=== PATIENT | female | born 1940 | race American Indian/Alaskan Native ===

== ENCOUNTER 2019-11-20 05:01 | Inpatient (IN) | payer MEDICARE, OTHER ==
[~2019-11-20] VITALS: Ht 149.9 cm; Wt 69.9 kg
[~2019-11-20 05:01] MED LIST: ACETAMINOPHEN-1 EAC1 PO; ALL DAY ALLERGY10 M3 PO; ALLEGRA ALLERG180 MG PO; ASPIR 8181 MG PO; FLAXSEED1000 MG PO; FUROSEMIDE40 MG PO; K-TAB ER20 MEQ PO; NITROGLYCERIN0.4 MG SL; NORCO 5-325 TA1 EACH PO; PLAQUENIL200 MG PO; PLAVIX75 MG PO
[2019-11-20] MEDS ORDERED: DOXYCYCLINE HY100 MG PO (05:17)
[2019-11-20] MEDS ORDERED: VITAMIN D250 MCG PO (05:18)
[2019-11-20] MEDS ORDERED: BETAMETHASONE D15 G1 TOP (05:19)
[2019-11-20] MEDS ORDERED: DOCUSATE SODIU100 MG PO (05:21)
[2019-11-20] MEDS ORDERED: PEPTO-BISMOL262 MG PO (05:21)
[2019-11-20] MEDS ORDERED: PAIN RELIEF500 M1 PO (05:22)
[2019-11-20] MEDS ORDERED: VITAMIN C1000 MG PO (05:22)
[2019-11-20] MEDS ORDERED: KAOPECTATE262 MG PO (05:23)
[2019-11-20] MEDS ORDERED: IMODIUM A-D2 M2 PO (05:24)
[2019-11-20] MEDS ORDERED: CYANOCOBAL1000 MCG/M IM (10:49)
--- NOTE | 2019-11-20 12:13 | CONS ---
[facility] [address], [place] [address] Signed DATE OF CONSULTATION: 11/20/2019 CHIEF COMPLAINT: Weakness. HISTORY OF PRESENT ILLNESS: Erika is an 79-year-old female, who happens to live with one of her five daughters. In general, she is fairly healthy except she did need an aortic valve replacement. They tried the radial approach, but they were unable to access the artery. She said it was miserable. They then used the groin approach and it went fine. They later go home two days later by private vehicle from [place] on a 3-hour drive home, she said she passed out in the car and had to be readmitted to our local hospital. Apparently, she needed some physical therapy at that time as well. Her only other surgery would have been an open hysterectomy with an incidental appendectomy at the same time. The last couple of days she had been feeling weak and anorexic. Finally, she was unable to get out of bed to get to the bathroom at 4 a.m. The daughter had called the EMS, had her brought to our local emergency room. She was found to have a fever and tachycardia, so she was started on sepsis protocol. She received a total of 3 L IV fluid and initially, a dose of Rocephin. Her systolic blood pressures have been soft in 80s to about 110. Heart rate has been running around 100 or so. In general, though she is improved both her vital signs and her overall clinical presentation. Initial chest x-ray was unremarkable for the most part. White count was up a little bit with elevated liver function test. Urinalysis was not overly concerning, although there seems to be some bacteria in it, but of course that culture is pending along with the blood cultures. With elevated liver function test, then an ultrasound was performed and we see that there is pericholecystic fluid and the gallbladder wall was a little thick at 5 mm. There appears to be sludge in the gallbladder, but the common bile duct is unremarkable. I had been called while I was in the operating room and I have come over to see her currently. PAST MEDICAL HISTORY: Aortic valve disease, deconditioning, GI bleed, alcohol abuse, positive PPD, seasonal allergies, lower extremity edema, congestive heart failure, rest pain, paroxysmal nocturnal dyspnea, mild COPD, bilateral knee pain, vertigo, herpes zoster, eczema, and possibly issues with carotid artery, although she is not sure. PAST SURGICAL HISTORY: Includes open hysterectomy with an incidental appendectomy many years ago and then aortic valve replacement in 2018 through an inguinal approach. SOCIAL HISTORY: She used to smoke and drink, but none recently. She lives with her daughter Ashely at [phone]. Also, her daughter, Ratna is here today. She follows with Diana Electronically Signed By: ARCHANA VALLE MD 11/20/19 1213 PATIENT NAME: ERIKA MCKENZIE CONSULTATION DATE OF : 36 REPORT #: [id number] PHYSICIAN: ARCHANA VALLE MD PCP: [facility] REPORT IS CONFIDENTIAL AND NOT TO BE RELEASED WITHOUT AUTHORIZATION [facility] [address], [place] [address] Signed Evans with [facility] and Dr. Kathy Nova is her development representative. She is a retired and prefer a [facility]. FAMILY HISTORY: Not obtained. REVIEW OF SYSTEMS: I talked with Erika and her daughter. Apparently, she has been doing generally at her baseline until last couple of days. ALLERGIES: None. MEDICATIONS: She stopped her Lasix. Also, docusate, Pepto-Bismol, vitamin C, Tylenol, Kaopectate, Imodium, hydroxychloroquine, Daxa, potassium, aspirin, doxycycline, vitamin D, and betamethasone cream. PHYSICAL EXAMINATION: VITAL SIGNS: Systolic blood pressure is running 80s to 111 over 37 to 72, heart rate 97 to 124, respiratory rate 20 to 27, her O2 sats around 95 to 98% on 2 L. Her temperature is 100.4. She is 4 feet 11 inches at 71 kg exam. GENERAL: Erika is an 79-year-old female lying supine in her ER bed. She is alert, awake, and interactive. She generally has good insight and answers appropriately. LUNGS: Clear to auscultation bilaterally. HEART: Little fast in the 90s. It appears to be sinus. I can hear a 3/6 systolic ejection murmur. ABDOMEN: Soft, flat, nontender. No palpable masses. Eventually, I went out to get her daughter about that as well. LABORATORY DATA: Her white blood cell count is 11.2, hemoglobin 15, neutrophils 96, platelets 144, BUN 18, creatinine 0.79, potassium 3.3. The total bilirubin is 4.0, AST 1198, ALT 699, alkaline phosphatase 327, albumin 3.2. D-dimer is up at 3640. Ferritin up at 1614. Lactic acid was initially 3.2, it is down to 1.7. Troponin is less than 0.010. Urinalysis showed some bacteria and so the urine culture is pending and her blood cultures are pending EKG of course showed her sinus tachycardia. RADIOGRAPHIC STUDIES: The chest x-rays reviewed and it shows the aortic valve prosthesis and may be some atelectasis in the lower lungs, but overall not particularly concerning. Ultrasound showed the pericholecystic fluid with the 5 mm thick gallbladder wall with sludge in the gallbladder, but a negative common bile duct. Electronically Signed By: ARCHANA VALLE MD 11/20/19 1213 PATIENT NAME: ERIKA MCKENZIE CONSULTATION DATE OF : 36 REPORT #: [id number] PHYSICIAN: ARCHANA VALLE MD [facility] REPORT IS CONFIDENTIAL AND NOT TO BE RELEASED WITHOUT AUTHORIZATION [facility] [address], [place] [address] Signed ASSESSMENT AND PLAN: Erika is an 79-year-old female, who presents with acute cholecystitis, cholelithiasis in the form of sludge. She is obviously a little septic. Overall, she has responded to her initial resuscitation. I spent a significant amount of time with Erika and her daughter, Ratna here in the emergency room. Erika seems very convicted that she wants no surgery. She told me the aortic valve replacement was quite miserable. I explained to her we generally like to remove infected gallbladder unless someone is so medically ill and/or septic that we would have to percutaneously drain the gallbladder. That is usually done by interventional radiologist. Our concern is that under general anesthetic that group of patients obviously would suffer a complete cardiovascular collapse. However at our small 25-bed critical access hospital, we have no interventional radiologist. These patients often go 3 hours away to [place]. Once they are stable, generally they get their gallbladders out while there in [place]. If there was no sludge or stones, the chance of recurrent cholecystitis is much less after percutaneous drainage. Consequently, when they have sludge and/or stones, we often removed that gallbladder once they are stable whether it is days or several weeks or even several months. The other option is admission with IV antibiotics. However, that is generally not particularly successful. They often improve initially, but once antibiotics come off, it generally recurs. She did ask if she could go home on antibiotics and that is generally not advised. Again, she maintain her desire repeatedly not to have surgery. In fact, I am not sure if she is interested in any interventional procedures. She has five daughters and she wants to talk to her daughters first and she will let us know. In the meantime, I have discussed this with Dr. Gaming, physician. I will also contact our hospitalist and update him as well. I am certainly available for her, I think she would probably be successful with her surgery. In the meantime, we were trying to obtain the most recent records from her development representative. She and her daughter have expressed understanding and agreed to above plan. Archana Valle MD ALB/MODL /[id number] cc: ANA MARÍA Najera MD Electronically Signed By: ARCHANA VALLE MD 11/20/19 1213 PATIENT NAME: ERIKA MCKENZIE CONSULTATION DATE OF : 36 REPORT #: [id number] PHYSICIAN: ARCHANA VALLE MD PCP: [facility] REPORT IS CONFIDENTIAL AND NOT TO BE RELEASED WITHOUT AUTHORIZATION [address] [address] Signed Archana Valle MD Copies: KATHY NOVA MD, ANDREW L MD ~ Electronically Signed By: ARCHANA VALLE MD 11/20/19 1213 PATIENT NAME: ERIKA MCKENZIE [facility] CONSULTATION DATE OF : 36 REPORT #: [id number] PHYSICIAN: ARCHANA VALLE MD PCP: [facility] REPORT IS CONFIDENTIAL AND NOT TO BE RELEASED WITHOUT AUTHORIZATION
--- NOTE | 2019-11-20 12:30 | NUR ---
PATIENT TO CCU FROM ER, BEDSIDE REPORT FROM ROSEY MARTINES. PATIENT AWAKE AND ALERT, HOB UP 45 DEGREE ANGLE. BED WEIGHT COLLECTED AND RECORDED. FULL ADMISSION DONE. DR. VALLE INTO ROOM, CONSENT SIGNED. DR. EDWARDS TO ROOM. PLAN FOR PATIENT TO GO TO SURGERY WITHIN THE NEXT HOUR, LR ON STRAIGHT TUBING HUNG. PRE-OP MEDICATIONS ADMINISTERED SEE SEP. MARCELLA MURPHY VERBALIZED TO HOLD K RIDER UNTIL AFTER SURGERY, DR. VALLE AWARE. VSS. REMOVED DENTURES AND GLASSES, CLEANSED DENTURES AND PLACED INTO CUP. LUNG SOUND CLEAR THROUGHOUT BILAT. PATIENT ORIENTED TO ROOM, UPDATE PROVIDED TO FAMILY. CALL LIGHT WITHIN REACH.
--- NOTE | 2019-11-20 13:00 | NUR ---
PATIENT LEFT FLOOR IN BED WITH JUNE RN TO SURGERY. COVID TEST NEGATIVE PLAN TO MOVE PATIENT TO ROOM 127.
--- NOTE | 2019-11-20 13:35 | NUR ---
PT TAKEN TO OR FOR SURGERY. WILL CHECK BACK
--- NOTE | 2019-11-20 15:25 | NUR ---
Attempted to speak with Erika. She is sleeping following surgery. Called and spoke with daughters Ashely and Ratna. Per daughters, pt is active and lives with their sister Irish. Pt drives herself, is retired as a commercial accountant. Uses a cane when needed, has a shower chair which she does not use. Daughters feel pt will need a walker on dc. Will notify the Dr. and follow up with patient tomorrow.
--- NOTE | 2019-11-20 15:30 | NUR ---
PATIENT APPEARS TO BE GRUNTING LAYING ON RIDE SIDE, STATES " I CANT BREATHE" LUNG SOUND AUSCULTATE FINE CRACKLES BREONNA, 02 SATURATION 98% RA, RR 19-23. PATIENT REPORTS NO PAIN. NOTIFIED DR. VALLE WHO VERBALIZED POST ANESTHESIA WITH MEDICATIONS ADMINISTERED DURING SURGERY. THEN VERBALIZED TO CALL AND TALK WITH MARCELLA MURPHY, TELEPHONE CALL TO MARCELLA MURPHY WHO VERABLIZED HE DIDN'T HAVE ANY MEDICATIONS TO ORDER THAT WOULD HELP WITH THE PATIENT'S FEELING OF BREATHLESSNESS. THEN VERBALIZED FOR THIS NURSE TO CALL HOSPITALIST DR. EDWARDS FOR FURTHER INSTRUCTION. PHONE CALL TO DR. EDWARDS AND NOTIFIED OF PATIENTS COMPLAINTS OF BREATHLESSNESS, DISCUSSED LUNG SOUNDS, AND VITAL SIGNS. ALSO REVIEWED I&O. DR. EDWARDS VERBALIZED WOULD COME TO PATIENT ROOM TO ASSESS.
--- NOTE | 2019-11-20 15:45 | NUR ---
DR. EDWARDS TO ROOM, ASSESSED PATIENT. NEW ORDERS FOR LASIX. NO OTHER ORDERS AT THIS TIME. VSS. PATIENT APPEARS TO BE RESTING, NO REPORTS OF PAIN. K RIDER INFUSING, SLOWED RATE SECONDARY TO BURNING SENSATION IN ARM NOW RUNNING AT 100ML/HR.
--- NOTE | 2019-11-20 16:10 | NUR ---
ADMINSTERED IV LASIX, AND STARTED IV ANTIBIOTICS SEE SEP. PATIENT APPEARS CALM AND AWAKE ON AND OFF. WHEN AWAKE PATIENT STATES " I CAN'T BREATHE". OXYGEN SATURATION 98% RA, BREATHING REGULAR, APPEARS TO MAKE SOUNDS OF CLEARING THROAT. VSS. CALL LIGHT WITHIN REACH. PATIENT TAKING SIPS OF WATER. RATES PAIN 0/10 ON PAIN SCALE.
--- NOTE | 2019-11-20 16:36 | NUR ---
URINE IN CALHOUN TUBING APPEARS SPORTS INTERN. ENCOURAGING PATIENT COUGH AND DEEP BREATHE. PATIENT ABLE TO FOLLOW COMMANDS. NO COMPLAINTS OF PAIN OR NAUSEA. NO OTHER NEEDS AT THIS TIME. CALL LIGHT WITHIN REACH.
--- NOTE | 2019-11-20 17:41 | NUR ---
PATIENT REPORTED PAIN 8/10 ON PAIN SCALE, SHARP AT SURGICAL SITE. ADMINISTERED IV PAIN MEDICATION PER SEVERE PAIN SEE MAR. REPOSITIONED PATIENT. PATIENT STATES " I AM NOT FEELING SHORT OF BREATH" REASSESING PAIN PATIENT NOT RATES PAIN AT A 4/10 ON PAIN SCALE. PATIENT APPEARS TO BE RESTING WITH EYES CLOSED. RT NOW IN ROOM, PROVIDING DEMONSTRATION WITH IS, PATIENT AWAKE ANSWERING QUESTIONS. NO OTHER NEEDS AT THIS TIME. LASIX APPEAR TO BE EFFECTIVE. BRANDON DRAIN DRAINING WELL, DRESSING TO ABDOMEN C/D/I.
--- NOTE | 2019-11-20 19:28 | NUR ---
PATIENT SAT UP AT EDGE OF BED, AT FIRST REPORTED SOME DIZZINESS THAT RESOLVED. TOLERATED SITTING UP FOR ABOUT 5 MINUTES. THEN REPORTED PAIN 7/10 ON PAIN SCALE. ADMINSTERED PAIN MEDICAITON PER SEP. PATIENT SPLINTING. LUNG SOUNDS CLEAR WITH CRACKLES IN THE BASES. VSS. DRESSING C/D/I. CALHOUN DRAINING WELL. BRANDON DRAIN DRAINING WELL. SEE I&O FOR HOURLY MONITORING. NO OTHER NEEDS AT THIS TIME. CALL LIGHT WITHIN REACH. IS ON BEDSIDE TABLE, PROVIDED EDUCATION WITH SPLINTING WHEN MOVING, AND USING IS FREQUENTLY. PATIENT DEMONSTRATED UNDERSTANDING.
--- NOTE | 2019-11-20 19:30 | NUR ---
SHIFT REPORT RECEIVED. PATIENT RESTING WITH EYES CLOSED. RECENTLY SPOKE WITH HER DAUGHTER ON THE PHONE. IV ABX AND K+ INFUSING PER ORDERS, SITE FLUSHED. APPEARS WNL. PATIENT DENIES ANY NEEDS, STATES "I'M JUST TIRED". ALLOWED PATIENT TO REST. CALL LIGHT IN REACH.
--- NOTE | 2019-11-20 20:30 | NUR ---
PATIENT RESTING WITH EYES CLOSED. WAKES EASILY TO VOICE. ORIENTED X4. DENIES PAIN OR FEELING SOB. TOLERATING ROOM AIR. LUNGS ARE CLEAR IN THE UPPER LOBES BREONNA WITH CRACKLES IN BREONNA BASES. ENCOURAGED COUGH AND IS USE. ABD IS SOFT, TENDER WITH HYPOACTIVE BOWEL SOUNDS. NO NAUSEA. TOLERATING SIPS OF CLEAR LIQUIDS. MINIMAL OUTPUT IN BRANDON AT THIS TIME, RECENTLY EMPTIED BY LUNA RN. LAP SITES X3, DRESSINGS CDI. CALHOUN CARE DONE. URINE OUTPUT QS. CLEAR YELLOW. PATIENT RESPONDED WELL TO LASIX. VS STABLE. IV FLUIDS PER ORDER, SITE WNL X2. SCDS IN USE. CMS INTACT. PATIENT DENIES ANY NEEDS. CALL LIGHT IN REACH. LAB IN FOR 2100 DRAW.
--- NOTE | 2019-11-20 22:42 | OR ---
[facility] [address], [place] [address] Signed DATE OF OPERATION: 11/20/2019 SURGEON: Archana Valle MD PREOPERATIVE DIAGNOSES: Acute cholecystitis and cholelithiasis. POSTOPERATIVE DIAGNOSES: Acute cholecystitis and cholelithiasis. PROCEDURES: Laparoscopic cholecystectomy without intraoperative cholangiogram (prolonged and difficult). ESTIMATED BLOOD LOSS: Minimal. FINDINGS: Erika indeed had a thickened gallbladder wall, quite edematous and very friable. The inside of gallbladder contained probably two-thirds sludge and multiple stones anywhere from 3 to 5 mm. Her gallbladder also was nodular and a bit friable and concerning for cirrhosis. We could not pass the intraoperative cholangiocatheter through the valves of Heister. Consequently, we abandoned intraoperative cholangiogram. INDICATIONS: Erika is an 79-year-old female, who in general is fairly healthy. She required a transcutaneous aortic valve replacement in 2018 for aortic stenosis. Since then, she has been feeling much better. She does daily exercises with her daughter. She can still travel with the family to [facility] and so forth. The last 2 days, she has been feeling lethargic and weak and anorexic. She was unable to get to the bathroom at about 4:00 am this morning. Consequently, her daughter had the ambulance bring her to the local emergency room. She was slightly hypotensive with systolic blood pressures in the 90s to 110. She was tachycardic and a fever of 100.4. Consequently, she was started on the sepsis protocol. She was given IV fluids and started with initial dose of Rocephin. White count came back a little up along with the liver function test. EKG of course confirmed her sinus tachycardia. Straight cath urine showed some bacteria, so urine culture is pending along with a blood culture. Chest x-ray was done expeditiously and we could see the aortic valve prosthesis. In fact, we eventually received her cardiac records and she has an Oden Suma aortic valve prosthesis. That involves a bovine valve surrounded by a cobalt metal cage. Of course, we can see that on the chest x-ray. Electronically Signed By: ARCHANA VALLE MD 11/20/19 2242 PATIENT NAME: ERIKA MCKENZIE OPERATIVE REPORT DATE OF : 36 REPORT #: [id number] PHYSICIAN: ARCHANA VALLE MD PCP: [facility] REPORT IS CONFIDENTIAL AND NOT TO BE RELEASED WITHOUT AUTHORIZATION [facility] [address], [place] [address] Signed The lungs were not particularly concerning. She had no abdominal pain. Yet liver function tests were elevated. So, an ultrasound was ordered. The gallbladder wall was thickened at 5 mm with pericholecystic fluid. There was quite a bit of sludge in the gallbladder and the common bile duct appeared unremarkable. I have been asked to see her as a general surgeon on-call. I met with Erika and her 2 daughters in the emergency room. For reasons Erika told me, she was awake when they placed aortic valve. I explained to her that is quite common. Nevertheless, that made her fearful of surgery. I spent a significant amount of time with Erika, the ER physician, and our hospitalist. We also had the daughters involved. She told me she has 5 daughters in total. Eventually, the third daughter came and she finally decided she want to have surgery. By then she had a sip of apple juice and we placed her in the ICU. She also received Zosyn. Therefore, I came back to the hospital and we made plans to take her to surgery at about 1:30 in the afternoon. I had reviewed with Erika and the family, the location and function of the gallbladder. We discussed laparoscopic versus open cholecystectomy. There is risk to surgery including, but not limited to bleeding, infection, scarring, change in contour of the skin, damage to bowel, damage to the main bile duct, incisional hernias, and other unforeseen comorbidities. They had expressed understanding and wished to proceed. In addition, we had discussed other options, but I think this was her best option. PROCEDURE IN DETAIL: Erika was taken down to the operating room and placed in the supine position under general endotracheal tube anesthesia. In the meantime, her COVID-19 test came back negative. She was already on Zosyn and Rocephin. She had been given subcutaneous heparin. SCDs were utilized. She already had a Jacinto catheter in place. She was then prepped and draped in the usual sterile fashion. Even with pharmacologic paralysis, I could not palpate the liver edge nor the gallbladder. We placed our trocars in the usual positions under direct visualization of camera without difficulty. We could immediately see a very large gallbladder. It was probably double the size we would normally expect. It was quite edematous and friable. We had to open the top of the gallbladder and suctioned out much of the sludge just to be able to grasp the gallbladder and lifted up in the right upper quadrant. She had some adhesions to the surrounding fat, which had to be carefully taken down, mostly bluntly and some with the cautery. We also found that her liver was quite nodular and quite friable actually, a couple of places came loose a little bit along the edge of the gallbladder and we just cauterized those gently with good hemostasis. We then dissected out the triangle of Calot and we clipped the cystic duct. We stayed up on the neck of the gallbladder and we opened that gently with the scissors and suctioned out some additional sludge. We then passed the intraoperative cholangiocatheter into the very distal part of the neck of the gallbladder toward the cystic duct. We could not get the catheter passed down through this area. Consequently, we abandoned our intraoperative cholangiogram. The cystic duct was secured with a PDS Endoloop and 2 clips were placed to юлия its Electronically Signed By: ARCHANA VALLE MD 11/20/19 2242 PATIENT NAME: ERIKA MCEKNZIE OPERATIVE REPORT DATE OF : 36 REPORT #: [id number] PHYSICIAN: ARCHANA VALLE MD PCP: [facility] REPORT IS CONFIDENTIAL AND NOT TO BE RELEASED WITHOUT AUTHORIZATION [facility] [address], [place] [address] Signed location. We then slowly and carefully removed the gallbladder from the gallbladder fossa with the help of the cautery. Again, the liver was nodular and a bit friable. We had little bleeding just in the gallbladder bed itself. We cauterized that as well. Once the gallbladder was completely free, we placed into an EndoCatch bag. The right upper quadrant was irrigated and suctioned out until clear. We then placed Macrina over the gallbladder fossa. A #10 flat Rudi drain was brought in the abdomen and placed along the area of the cystic duct and went out laterally to the right most lateral 5 mm subcostal trocar site. It was held in place with interrupted 2-0 nylon suture. We then used our laparoscopic suturing device to pass 0 Vicryl suture x2 on either side of the fascia of the subxiphoid trocar site. This was tied down to close this fascia primarily. After this, the gallbladder was removed along with the remaining trocars. The gallbladder was opened on the back table by our circulating nurse for photodocumentation. The fascia of the supraumbilical trocar site was closed with multiple interrupted simple and [id number] 0 Vicryl sutures. Local anesthetic was injected into all trocar sites. Each trocar site was irrigated and suctioned out until clear. All the skin and dermis of each trocar site was closed with interrupted 3-0 subcuticular Monocryl sutures. We added 5-0 fast absorbing plain gut suture to close the skin on the supraumbilical trocar site. Dry gauze and tape were then applied to all incisions. Erika was then awakened from anesthesia, extubated in the OR, and taken directly down to the ICU in stable condition. Archana Valle MD ALB/MODL /[id number] cc: Kathy Nova MD [place] Archana Valle MD Copies: KATHY NOVA MD Electronically Signed By: ARCHANA VALLE MD 11/20/19 2242 PATIENT NAME: ERIKA MCKENZIE ROMAN OPERATIVE REPORT DATE OF : 36 REPORT #: [id number] PHYSICIAN: ARCHANA VALLE MD PCP: [facility] REPORT IS CONFIDENTIAL AND NOT TO BE RELEASED WITHOUT AUTHORIZATION [address] [address] Signed ARCHANA VALLE MD ~ Electronically Signed By: ARCHANA VALLE MD 11/20/19 2242 PATIENT NAME: ERIKA MCKENZIE OPERATIVE REPORT DATE OF : 36 REPORT #: [id number] PHYSICIAN: ARCHANA VALLE MD PCP: [facility] REPORT IS CONFIDENTIAL AND NOT TO BE RELEASED WITHOUT AUTHORIZATION
--- NOTE | 2019-11-21 00:10 | NUR ---
PATIENT SLEEPING SOUNDLY. WOKE EASILY TO VOICE. PATIENT ORIENTED X4. REPORTS PAIN 6/10, PRN NORCO PROVIDED. DIOMEDES PACK OFFERED. PATIENT REPORTS DIFFICULTY COUGHING DUE TO PAIN. ENCOURAGED SPLINTING AND USING IS. LAP SITES X3, CDI. BRANDON EMPTIED FOR 15ML SEROSANGUENOUS FLUID. URINE OUTPUT QS. IV FLUIDS AND ABX PER ORDER, SITE WNL. VS STABLE. PATIENT DENIES ANY GI UPSET OR FEELING SOB. TOLERATING ROOM AIR. CONTINUE TO HAVE CLEAR LUNG SOUNDS IN UPPER LOBES BREONNA AND CRACKLES IN THE BREONNA BASES. CALL LIGHT IN REACH.
--- NOTE | 2019-11-21 02:00 | NUR ---
PATIENT APPEARS TO BE SLEEPING SOUNDLY. VS STABLE. CALL LIGHT IN REACH.
--- NOTE | 2019-11-21 04:30 | NUR ---
PATIENT ALERT AND ORIENTED X4. REPORTS PAIN 7/10 IN HER ABD. ABD IS SLIGHTLY FIRM AND TENDER. BOWEL SOUNDS ACTIVE. BRANDON HAS MINIMAL OUTPUT AND DRESSINGS CDI X3. PRN NORCO PROVIDED. PATIENT CONTINUES TO HAVE CRACKLES IN THE LUNG BASES BILATERALLY THAT ARE NOT CLEARED WITH COUGH. TOLERATING ROOM AIR, RR 18. IV SITE IN RIGHT HAND APPEARS INFILTRATED, SITE DC'd. IV FLUIDS INFUSING IN RIGHT AC, SITE WNL. PURPURA NOTED ON PATIENT'S BREONNA FOREARMS, PATIENT REPORTS THIS A RECURRING ISSUE. WILL CONTINUE TO MONITOR. PATIENT DENIES ANY FURTHER NEEDS.
--- NOTE | 2019-11-21 06:00 | NUR ---
PATIENT IS RESTING IN BED. REPORTS ADEQUATE PAIN CONTROL. NO NAUSEA OR SOB. BRANDON EMPTIED FOR 10 ML SEROSANGUENOUS FLUIDS. CALHOUN EMPTIED. FRESH ICE WATER AND APPLE JUICE PROVIDED. PATIENT DENIES ANY NEEDS. CALL LIGHT IN REACH.
--- NOTE | 2019-11-21 08:16 | NUR ---
PT AWAKE AND ALERT X4, SITTING UP IN BED. PT DENIES PAIN, NAUSEA, AND SOB AT THIS TIME. IN TO ROUND ON PT, GAUZE AND TAPE REMOVED FROM LAP SITES. PT REPORTS FEELING HUNGRY, DIET IS ADVANCED PER AND BREAKFAST IS ORDERED. PT VITALS ARE WNL AT THIS TIME, SHE REMAINS ON ROOM AIR. PT REQUESTED AND WAS GIVEN WARM WASHCLOTHS FOR FACE AND HANDS. PT THEN TALKING ON THE PHONE WITH DAUGHTER, .
--- NOTE | 2019-11-21 08:52 | NUR ---
PT BOOSTED UP IN BED, THEN SITTING UP TO EAT BREAKFAST. PT IS ALERT AND ORIENTED X4, TALKATIVE. PT ABLE TO EAT BREAKFAST INDEPENDENTLY.
--- NOTE | 2019-11-21 09:15 | NUR ---
IV SITE IS INTACT, NO REDNESS OR SWELLING NOTED, FLUIDS AND FLUSHES INFUSE EASILY. PT DENIES PAIN AT SITE.
--- NOTE | 2019-11-21 10:49 | NUR ---
PT SLEEPING SOUNDLY IN BED AT THIS TIME. O2 SAT IS 99% ON ROOM AIR, HR IS 70'S. PT APPEARS COMFORTABLE.
--- NOTE | 2019-11-21 11:08 | NUR ---
PT REPORTS 6/10 ABD PAIN, 1 TAB NORCO GIVEN. LUNCH ALSO ORDERED FOR PT.
--- NOTE | 2019-11-21 12:05 | NUR ---
PT GIVEN LUNCH TRAY AND BOOSTED UP IN BED. PT ABLE TO FEED SELF SOUP AND CRACKERS.
--- NOTE | 2019-11-21 12:11 | EKG ---
[facility] [address] [facility] [place] [address] Signed Sinus tachycardia Left anterior fascicular block Left ventricular hypertrophy with repolarization abnormality Abnormal ECG When compared with ECG of 21-AUG-2018 13:45, Sinus rhythm has replaced Junctional rhythm Vent. rate has increased BY 58 BPM Nonspecific T wave abnormality has replaced inverted T waves in Lateral leads Confirmed by KIERA EDWARDS MD ([id number]) on 11/21/2019 12:11:34 PM Electronically Signed By: KIERA EDWARDS MD 11/21/19 1211 PATIENT NAME: HAYLEY MCKENZIE Electrocardiogram DATE OF : 36 PHYSICIAN: KIERA EDWARDS MD REPORT #: [id number] REPORT IS CONFIDENTIAL AND NOT TO BE RELEASED WITHOUT AUTHORIZATION
--- NOTE | 2019-11-21 12:28 | NUR ---
MED REC COMPLETED USING MEDICAL RECORDS DATED 09/20/19 FROM [facility].
--- NOTE | 2019-11-21 12:53 | NUR ---
PT ALERT, ORIENTED AND SITTING UP IN BED WATCHING TV. PT IS PLEASANT, SAID SHE IS FEELING BETTER FOLLOWING SURGERY. PT IS HOUSE CONVIENCE IN CCU WAITING FOR M/S OPENING. PT MENTIONED THAT SHE WOULD LIKE A VISIT FROM HER TREATING AND PUMPING SUPERVISOR BUT IS CONCERNED HE IS NOT WELL AND DID NOT WANT TO BOTHER HIM AT THIS TIME. I WILL CONTACT HER TREATING AND PUMPING SUPERVISOR IF SHE DESIRES. GAVE BLESSING, PT THANKED ME FOR VISIT
--- NOTE | 2019-11-21 13:45 | NUR ---
FULL REPORT GIVEN TO JERMAINE MARTINES VIA PHONE. ALL QUESTIONS ANSWERED.
--- NOTE | 2019-11-21 14:01 | NUR ---
PT LEFT CCU TO GO TO ROOM 113 ON MED-SURG WITH SET UP MECHANIC CROWN ASSEMBLY MACHINE. ALL PERSONAL BELONGINGS WENT WITH PT. PT REMAINS ALERT AND ORIENTED X4, DENIES PAIN AT THIS TIME.
--- NOTE | 2019-11-21 14:06 | NUR ---
1400: PT ARRIVED TO ROOM 113 AND WAS ORIENTED TO THE ROOM. REPORT RECIEVED FROM KARTIK MARTINES. PT DENIES ANY PAIN OR SOB. IV INFUSING ORDERED, SCD'S ON AND RUNNING. BRANDON DRAIN IN PLACE WITH THE DRESSING CDI. CALHOUN DRAINING CLEAR YELLOW URINE AT THIS TIME. VSS. SEE ASSESSMENT.
--- NOTE | 2019-11-21 15:05 | NUR ---
Pt encouarged to ambulate and after some conversation she agreed to get up to the chair. With 2 person assist and the use of the walker she was able to transfer to the chair. She is weak on her feet but was steady. Pt encouraged to shower but did not respond to the offer. Pt ordering dinner at this time and drinking an ensure. Pt states her pain is under good control and denies any nausea.
--- NOTE | 2019-11-21 15:15 | NUR ---
In to speak with pt. She is sitting up, reading the paper. States she is ok, but does have some pain at times. Updated I spoke with her daughter's yesterday and what I had written in her assessement. She wanted me to know her daughter Irish lives with her, she does not live with her daughter. She plans on going home when she is cleared medically by the
--- NOTE | 2019-11-21 16:17 | NUR ---
BROUGHT PATIENT A WARM BLANKET. PATIENT IS SITTING UP IN HER CHAIR. SHE ORDERED HER DINNER AND BREAKFAST. AND SHE DIDN'T WANT TO TAKE A SHOWER TODAY.
--- NOTE | 2019-11-21 16:39 | NUR ---
Pt sleeping, call sánchez within reach.
--- NOTE | 2019-11-21 17:08 | NUR ---
Pt refused a shower and was helped back to bed per her request. She states she is having some pain rated at a 7, pt medicated see emar. There was a scant amount of drainage on her gown from the surgical sites and a fresh gown was placed. The FIELD PIPE LINES SUPERVISOR is now doing hui-care.
--- NOTE | 2019-11-21 19:20 | NUR ---
SHIFT REPORT RECEIVED FROM DAYSHICICI DEAN AT BEDSIDE. PT AWAKE AND RESTING QUIETLY IN BED, NO NEEDS VERBALIZED. IV FLUIDS INFUSING, SITE WNL. BOARD UPDATED, CALL LIGHT IN REACH.
--- NOTE | 2019-11-21 20:01 | NUR ---
IV PUMP ALARMING DUE TO DISTAL OCCLUSION, PUMP RESUMED. TELEPHONE UPDATE PROVIDED TO PT'S DAUGHTER JELLY. PER PT OKAY TO GIVE DAUGHTER UPDATE. WARM BLANKET ALSO PROVIDED, NO FURTHER NEEDS. CALL LIGHT IN REACH.
--- NOTE | 2019-11-21 22:38 | NUR ---
VITALS AND I&OS DONE AND CHARTED. BEDSIDE TABLE AND CALL LIGHT IN REACH. PT NEEDS NOTHING MORE AT THIS TIME.
--- NOTE | 2019-11-21 22:40 | NUR ---
ASSESSMENT COMPLETE, SCHEDULED MEDS GIVEN (SEE EMAR). VSS, PT REPORTS TOLERABLE PAIN TO ABDOMEN BUT DID NOT RATE OVERALL PAIN. DENIES NEED FOR PAIN MEDICATION AT THIS TIME, WILL MONITOR. ABDOMINAL INCISION WNL, SCANT REDDNESS NOTED TO SITE ABOVE UMBILICUS. WILL MONITOR. IV FLUIDS INFUSING PER MD ORDERS, SITE WNL AND FLUSHES EASILY. NO FURTHER NEEDS, CALL LIGHT IN REACH.
--- NOTE | 2019-11-21 23:13 | NUR ---
PT RESTING IN BED. IV FLUIDS INFUSING AT 55MLS/HR, SITE WNL. NO NEEDS VERBALIZED. REPORTS TOLERABLE PAIN AT THIS TIME, DENIES NEED FOR PAIN MEDICATION. WILL CONTINUE TO MONITOR. CALL LIGHT IN REACH.
--- NOTE | 2019-11-22 00:44 | NUR ---
pump cleared. scheduled iv abx infusing (see emar). iv site wnl, pt drowsy awakens easily. no needs verbalized. call light in reach.
--- NOTE | 2019-11-22 03:43 | NUR ---
PT RESTING IN BED WITH EYES CLOSED, RESPIRATIONS EVEN AND UNLABORED. NO DISTRESS NOTED. IV FLUIDS AND ABX INFUSING. CALL LIGHT IN REACH.
--- NOTE | 2019-11-22 05:51 | NUR ---
ASSESSMENT COMPLETE, PRN NORCO GIVEN FOR GNERALIZED ABDOMINAL PAIN (SEE EMAR). IV FLUIDS INFUSING, SITE WNL. LAP SITES X3 WNL, OPEN TO AIR. SCANT REDDNESS AT SITE ABOVE UMBILICUS REMAINS IN PLACE. SCD'S OFF AT THIS TIME PER PT REQUEST. NO FURTHER NEEDS, CALL LIGHT IN REACH.
--- NOTE | 2019-11-22 06:01 | NUR ---
VITALS AND I&OS DONE AND CHARTED. FRESH ICE WATER GIVEN. GARBAGES EMPTIED. BEDSIDE TABLE AND CALL LIGHT IN REACH. PT NEEDS NOTHING MORE AT THIS TIME.
--- NOTE | 2019-11-22 07:40 | NUR ---
0717: PT RESTING IN HER BED AND SHE STATES SHE IS OKAY AT THIS TIME. CALL EZ WITHIN REACH. REPORT RECIEVED FROM JESUS MARTINES.
--- NOTE | 2019-11-22 08:08 | NUR ---
PT EATING HER BREAKFAST AT THIS TIME. SHE STATES HER ABD PAIN IS WELL CONTROLED AND DENIES ANY SOB OR CP. DEEP BREATHING AND IS USE ENCOUARAGED WELL INCREASING HER ACTIVITY TODAY WHICH SHE STATES UNDERSTANDING. CALHOUN DRAINING JULIANN COLORED URINE WITHOUT DIFFICULTY, BRANDON DRAIN REMAINS IN PLACE AND DRAINING SMALL AMOUNTS OF SEROUS/SANG DRAINAGE. WILL CONTINUE TO MONITOR. SEE ASSESSMENT.
--- NOTE | 2019-11-22 10:15 | NUR ---
In to see Erika. OT and nurse in the room. Pt states she about the same as yesterday. Denies needs. Per notes with stay a few days on IV antibiotics.
--- NOTE | 2019-11-22 10:35 | NUR ---
Pt resting in her chair with no complaints. She states she worked with both PT and OT this morning.
--- NOTE | 2019-11-22 12:07 | NUR ---
Damien showarden with the assistance from the GLASS BULB MACHINE ADJUSTER at this time.
--- NOTE | 2019-11-22 14:06 | NUR ---
Pt was seen by Dr Rivera and he pulled the SKYE drain. Orville reyes'd as ordered by Dr Rivera at this time as well. She was encouarged to walk by Dr Rivera but the pt refused when I asked if she will walk now. Lung sounds are now coarse and she was encouraged to deep breath and cough and use her IS which she is using at this time. SCD's replaced at this time and are on and running. Pt states she has some pain where the skye was at which she states it is tolerable.
--- NOTE | 2019-11-22 14:34 | PATH ---
[facility] [address] [facility] [place], [place] [address] Signed SPECIMEN(S): A GALLBLADDER AND STONES SPECIMEN SOURCE: A. GALLBLADDER AND STONES CLINICAL HISTORY: Acute cholecystitis/sepsis. FINAL PATHOLOGIC DIAGNOSIS: Gallbladder and stones, cholecystectomy: - Cholelithiasis and acute cholecystitis. DDF:cml:C2NR MICROSCOPIC EXAMINATION: Histologic sections of all submitted blocks are examined by light microscopy. These findings, together with the gross examination, support the pathologic diagnosis. GROSS DESCRIPTION: The specimen, labeled "MT, A.," and designated on the requisition "gallbladder and stones," is received in formalin and consists of Specimen: Previously opened gallbladder. Dimensions: 10.0 x 3.7 x 2.0 cm. Serosa: Smooth and violaceous with a 0.6 x 0.5 cm disruption towards fundus tip. Cystic Duct: Unobstructed. Calculi: Possible soft, dark lehman stones measuring 2.0 x 1.2 x 0.5 cm in aggregate. Mucosa: Pale lehman-brown. Wall thickness: Up to 0.5 cm. Lymph node: No pericystic lymph nodes are grossly identified. Additional: None. Poker Machine Attendant sections are submitted in cassette (A1). AT (under the direct supervision of a pathologist) The Gross Description was prepared using a voice recognition system. The report was reviewed for accuracy; however, sound-alike word errors, addition and/or deletions may occur. If there is any question about this report, please contact Client Services. PERFORMING LABORATORY: The technical component was performed by [employer], Misti Gilbert, PATIENT NAME: HAYLEY MCKENZIE PATHOLOGY DATE OF : 36 REPORT #: [id number] PHYSICIAN: ERNESTO VIVAR PCP: [facility] REPORT IS CONFIDENTIAL AND NOT TO BE RELEASED WITHOUT AUTHORIZATION [facility] [address] [place], [place] [address] [place] [address] (Fashion Supervisor: Mia Cline MD; CLIA# [id number]). Professional interpretation was performed by [employer] [facility], [address] [address] (CLIA# [id number]). Diagnostician: Greg Villalba DO Pathologist Electronically Signed 11/22/2019 Copies: ~ PATIENT NAME: HAYLEY MCKENZIE PATHOLOGY DATE OF : 36 REPORT #: [id number] PHYSICIAN: ERNESTO VIVAR PCP: [facility] REPORT IS CONFIDENTIAL AND NOT TO BE RELEASED WITHOUT AUTHORIZATION
--- NOTE | 2019-11-22 15:06 | NUR ---
PT AMBULATED IN THE HALLS AND WALKED ONE LAP SLOWLY BUT WAS STEADY ON HER FEET. PT ALSO VOIDED PRIOR TO THE WALK SINCE HER CALHOUN WAS PULLED. PT TOLERATED THE WALK WELL AND IS NOW SITTING UP IN HER CHAIR.
--- NOTE | 2019-11-22 15:51 | NUR ---
PATIENT IS UP IN HER CHAIR.
--- NOTE | 2019-11-22 18:19 | NUR ---
Pt resting in her bed and denies any problems at this time.
--- NOTE | 2019-11-22 19:15 | NUR ---
SHIFT REPORT RECEIVED FROM DAYSCAFT BOBBI DEAN AT BEDSIDE. PT AWAKE AND RESTING IN BED, NO NEEDS OR CONCERNS VERBALIZED. IV FLUIDS AND ABX INFUSING, SITE WNL. CALL LIGHT IN REACH.
--- NOTE | 2019-11-22 19:46 | NUR ---
HELPED PT TO THE BATHROOM AND BACK TO BED. SCD'S PUT BACK ON. BEDSIDE TABLE AND CALL LIGHT IN REACH.
--- NOTE | 2019-11-22 19:58 | NUR ---
BRIEF UPDATE VIA TELEPHONE GIVEN TO PT'S DAUGHTER JELLY. DAUGHTER THEN TRANSFERED TO PT'S ROOM.
--- NOTE | 2019-11-22 21:08 | NUR ---
VITALS AND I&OS DONE AND CHARTED. HELPED PT TO THE BSC AND BACK TO BED. SCD'S PUT BACK ON. BEDSIDE TABLE AND CALL LIGHT IN HER REACH. PER PT REQUEST I TURNED HER CHANNEL TO SOMETHING SHE WOULD LIKE TO WATCH. WE FOUND FAMILY FUED .
--- NOTE | 2019-11-22 21:30 | NUR ---
ASSESSMENT COMPLETE, NO SCHEDULED MEDS (SEE EMAR). PRN NORCO GIVEN FOR 6/10 PAIN. VSS, PT AWAKE AND RESTING IN BED. IV FLUIDS INFUSING, SCANT SEROSANGUINEOUS FLUIDS NOTED UNDER OPSITE. NO SIGNS OF INFILTRATION. PT ENCOURAGED TO KEEP ARM STRAIGHT, WILL MONITOR. LAP SITES X3 OPEN TO AIR, SITES WNL. SITE FROM BRANDON REMOVAL COVERED BY TAPE, NO SHADOWING NOTED. SCD'S ON. OFFERED TO AMBULATE WITH PT IN HALLWAY EDUCATION PROVIDED ON BENEFITS ON AMBULATION, DECLINED BY PT. PT ENCOURAGED TO COUGH AND DEEP BREATH WHILE IN BED. CALL LIGHT IN REACH.
--- NOTE | 2019-11-22 23:00 | NUR ---
PT RESTING IN BED WITH EYES CLOSED. RESPIRATIONS EVEN AND UNLABORED, NO DISTRESS NOTED. PT APPEARS COMFORTABLE, CALL LIGHT IN REACH.
--- NOTE | 2019-11-23 00:25 | NUR ---
IN ROOM TO HANG IV ABX, IV FLUIDS LEAKING UNTO PILLOW. PT HX DIFFICULT IV ACCESS, VICE PRESIDENT INDUSTRIAL RELATIONS LESLIE CALLED FOR POSSIBLE NEW IV. LAURITA OCTOBER IN ROOM TO ASSIST PT TO BATHROOM.
--- NOTE | 2019-11-23 00:37 | NUR ---
HELPED PT TO THE BSC AND BACK TO BED. BEDSIDE TABLE AND CALL LIGHT IN REACH.
--- NOTE | 2019-11-23 00:45 | NUR ---
NEW IV PLACED BY RELEASE MANAGER TO LEFT WRIST, IV FLUIDS NA DABX RESUMED. PT DENIES ADDITIONAL NEEDS, CALL LIGHT IN REACH. SCD'S ON.
--- NOTE | 2019-11-23 03:36 | NUR ---
ASSESSMENT COMPLETE, NO NEW CHANGES OR CONCERNS. PT AMBULATED IN HALLWAY, TOLERATED WELL. DENIES SOB OR CHEST PAIN. LUNG SOUNDS CLEAR, DIMINISHED IN BASES. NEW BAG IV FLUIDS HUNG AND INFUSING, SITE WNL. SCD'S ON. LAP SITES X3 SWETA, DRY. BRANDON REMOVAL SITE REMAINS COVERED, NO SHADOWING. CALL LIGHT IN REACH.
--- NOTE | 2019-11-23 06:06 | NUR ---
HELPED PT TO THE BSC AND BACK TO BED. SCD'S PLUGGED BACK IN. GARBAGES EMPTIED. VITALS AND I&OS DONE AND CHARTED. BEDSIDE TABLE AND CALL LIGHT IN REACH. PT NEEDS NOTHING MORE AT THIS TIME.
--- NOTE | 2019-11-23 07:25 | NUR ---
REPORT RECEIVED FROM BOBBI LEE. PT RESTING IN BED WITH EYES CLOSED. RESPIRATIONS EVEN AND UNLABORED. BED RAILS UP. CALL LIGHT WITHIN REACH. PT ALLOWED TO REST.
--- NOTE | 2019-11-23 07:45 | NUR ---
PATIENT RESTING IN BED. RN IN ROOM. PATIENT GOES TO USE THE BATHROOM. PATIENT USES WALKER. ONE PERSON ASSISTING. PATIENT BACKS TO BED. CALL LIGHT WITHIN REACH. NO OTHER NEEDS AT THIS TIME
--- NOTE | 2019-11-23 07:57 | NUR ---
MORNING ASSESSMENT AND MEDICATION DUE. PT REPORTS 3/10 PAIN, SEE MAR FOR MEDICATION GIVEN. LUNG SOUNDS CLEAR. PT REPORTS PASSING GAS. INSCISION EDGES APROXIMATED, NO DRAINAGE NOTED. 1PA, FWW UP TO RESTOOM AND TO AMBULATE X1 LAP IN PERES. PT UP TO CHAIR FOR BREAKFAST. I.S. USE DEMONSTRATED REACHING 500ML. PT REPORTS HER DAUGHTER WILL BE HELPING TO TAKE CARE OF HER WHEN SHE GOES HOME. PT ANTICIPATING DISCHARGE TODAY. WATER REFILLED. NO ADDITIONAL REQUESTS OR COMPLAINTS AT THIS TIME. CALL LIGHT WITHINR EACH.
[2019-11-23] MEDS ORDERED: AUGMENTIN 875-1 EACH PO (09:42)
[2019-11-23] MEDS ORDERED: FLAGYL500 MG PO (09:43)
[2019-11-23] MEDS ORDERED: NORCO 5-325 TA1 EACH PO (09:44)
[2019-11-23] MEDS ORDERED: TYLENOL325 MG PO (09:44)
[2019-11-23] MEDS ORDERED: ADVIL100 MG PO (09:45)
[2019-11-23] MEDS ORDERED: MIRALAX17 GM PO (09:46)
[2019-11-23] MEDS ORDERED: DULCOLAX5 MG PO (09:46)
[2019-11-23] MEDS ORDERED: HYDROXYCHLOROQ200 MG PO (09:47)
--- NOTE | 2019-11-23 09:56 | NUR ---
PATIENT SITTING UP IN CHAIR. VITAL SIGNS AND I&O DONE. CALL LIGHT WITHIN REACH. NO OTHER NEEDS AT THIS TIME
--- NOTE | 2019-11-23 10:06 | NUR ---
PT STATES SHE IS READY FOR DISCHARGE AND HER FAMILY IS WAITING OUTSIDE NOW FOR HER. PEPERACILLIN CONTINUES TO INFUSE, 2HR REMAINING. CONTULSTED AND STATES IT IS CARLEE TO STOP ABX INFUSION NOW AND HAVE PT BEGIN PO ABX THIS AFTERNOON AFTER PICKING THEM UP FROM THE PHARMACY. PT UPDATED AND VERBALIZES UNDERSTANDING STATING SHE WILL START TAKING HER ABX THIS AFTERNOON. IV DC'D BY DARREN, STUDENT RN, WNL. LUTHER AND DOMINGA APPLIED. KATT PHAMACIST TO BEDSIDE FOR MEDICATION EDUCATION. PT VERBALIZES UNDERSTANDING OF MEDICATIONS. DISCHRAGE INSTRUCTIONS REVIEWED WITH PT. PT VERBALIZES UNDERSTANDING OF INSTRUCTIONS, MEDICATIONS, AND FOLLOW UP APPOINTMENTS. PT DRESSES SELF WITH 1PA. PT TRANSFERES SELF TO WHEELCHAIR AND IS WHEELED FROM MED/SURG TO MEET FAMILY. NO ADDITIONAL REQUESTS OR COMPLAINTS AT THIS TIME.
--- NOTE | 2019-11-23 13:02 | DS ---
[facility] [address] [place], [place] [address] Signed ADMISSION DATE: 11/20/2019 DISCHARGE DATE: 11/23/2019 FINAL DIAGNOSES: 1. Severe acute cholecystitis cholelithiasis. 2. 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 3. Aortic valve replacement, 2018. PROCEDURES: 1. Laparoscopic cholecystectomy without intraoperative cholangiogram. 2. Ultrasound of the gallbladder. 3. Chest x-ray. HISTORY OF PRESENT ILLNESS: Erika is an 79-year-old female, who resides with her daughter. She generally have good functional status. She apparently has a history of alcohol abuse in the past along with smoking. She did have an aortic valve replaced. It is a bovine valve inside a [place]. It was placed transcutaneously through the groin. She is generally in pretty good health and does exercises with her daughter every day. However, for 2 days, she was having generalized weakness and anorexia. Her family brought her to our local emergency room for evaluation. HOSPITAL COURSE: Erika was seen in the emergency room with essentially no abdominal tenderness. However, she was tachycardic, hypotensive, and had a fever. She was started on sepsis protocol. She initially received Rocephin, then followed by Joyce. White count was borderline, but the liver function tests were markedly elevated. Consequently after the chest x-ray was performed which was essentially unremarkable, an ultrasound was then ordered. The gallbladder wall was thickened at 5 mm. There was pericholecystic fluid with sludge and the common bile duct was unremarkable. I had met with Erika and her family in the emergency room. After a very long detailed discussion actually covering several hours, Erika finally decided she would stay and have her surgery. Initially, she was against surgery. She went to surgery later that afternoon and underwent a prolonged and difficult laparoscopic cholecystectomy without intraoperative cholangiogram. Her gallbladder wall was thickened and very friable. There was a tremendous amount of sludge in stones and also her liver was nodular and a bit friable as well concerning for early cirrhosis of the liver. We of course kept her in the hospital on her Zosyn with physical therapy. Her white count is remained right around 11-07/25. Other labs stabilized. Her liver function tests have continued to decline. Her INR was slightly elevated at 1.4. We had to give her some Lasix and replace her potassium and her magnesium and some phosphorus while she was here. Although generally Electronically Signed By: ARCHANA VALLE MD 11/23/19 1302 PATIENT NAME: ERIKA MCKENZIE DISCHARGE SUMMARY DATE OF : 36 REPORT #: [id number] PHYSICIAN: ARCHANA VALLE MD PCP: [facility] REPORT IS CONFIDENTIAL AND NOT TO BE RELEASED WITHOUT AUTHORIZATION [address] [address] Signed cooperative, she is not particularly motivated. However, she did walk up and down the hallways today with our nurse. At this point, she feels safe going home with her daughters. In fact, she has 5 daughters in all. They are available to her and are quite helpful. DISCHARGE PLANS AND MEDICATIONS: Erika asked for a small prescription of narcotics to be to taken at home. Consequently, we will give her [place] 5/325 one tablet p.o. q.6 hours p.r.n. for severe postoperative pain. We will dispense 15 tablets with no refills. Otherwise, she likes to use Tylenol as needed for pain. She can certainly purchase that [id number]. I think that will be fine despite the visual appearance of the liver. Also, she could use a little ibuprofen or Aleve as well. We had her on a stool softener, but she has not had a bowel movement currently. She is welcomed by MiraLAX or Dulcolax as needed for constipation [id number]. We are going to continue the Augmentin at 875 mg one p.o. b.i.d. for 5 additional days. We will give Flagyl 500 mg one p.o. t.i.d. for 5 additional days for a total of 8 to 9 days of antibiotics. We will resume her hydroxychloroquine in one week. We can resume all her other chronic medications today. She will continue her regular diet at home. She will continue her usual activities at age 79. All the incisions are healing nicely. Her drains have been removed. The dressing on the drain site is clean, dry, and intact. She can change it once a day for 3 days and shower while it is off. After 2 additional days from her discharge today, she can discontinue that dressing. I will have her back in my office in about 7 to 10 days for followup. She has expressed understanding and agrees to above plan. I also reviewed this with Dr. Jah Rain, who is her hospitalist, helping and taking care of her as well. I also reviewed this with her nurse, Johanna. Archana Valle MD ALB/MODL /[id number] cc: MD Archana Garcia MD Chart Filed Incomplete Electronically Signed By: ARCHANA VALLE MD 11/23/19 1302 PATIENT NAME: ERIKA MCKENZIE DISCHARGE SUMMARY DATE OF : 36 REPORT #: [id number] PHYSICIAN: ARCHANA VALEL MD PCP: [facility] REPORT IS CONFIDENTIAL AND NOT TO BE RELEASED WITHOUT AUTHORIZATION [address] [address] Signed DANE Najera Copies: RICHARD NOVA MD, ANDREW L MD CHART FILED INCOMPLETE ~ Electronically Signed By: ARCHANA VALLE MD 11/23/19 1302 PATIENT NAME: ERIKA MCKENZIE DISCHARGE SUMMARY DATE OF : 36 REPORT #: [id number] PHYSICIAN: ARCHANA VALLE MD PCP: [facility] REPORT IS CONFIDENTIAL AND NOT TO BE RELEASED WITHOUT AUTHORIZATION
== END 2019-11-23 10:30 | disposition home or self-care (01) | DRG 854 ==
LOC: ED 05:01 → CCU 10:38 → MS 11-21 14:00
PROVIDERS: ADMIT Colon & Rectal Surgery
PROC: 0FT44ZZ Resection of Gallbladder, Percutaneous Endoscopic Approach (ICD-10-PCS; principal; 2019-11-20 13:15)
DX: A41.9 Sepsis, unspecified organism (principal); K80.00 Calculus of gallbladder with acute cholecystitis without obstruction; R65.20 Severe sepsis without septic shock; J30.89 Other allergic rhinitis; J44.9 Chronic obstructive pulmonary disease, unspecified; K70.30 Alcoholic cirrhosis of liver without ascites; F10.11 Alcohol abuse, in remission; E87.6 Hypokalemia; E83.39 Other disorders of phosphorus metabolism; E83.42 Hypomagnesemia; Z79.899 Other long term (current) drug therapy; Z95.3 Presence of xenogenic heart valve; Z87.891 Personal history of nicotine dependence; Z79.82 Long term (current) use of aspirin
CPT/HCPCS: 00790; 36415; 51702; 71045; 76705; 80048; 80053; 81001; 82728; 83605; 83735; 84100; 84134; 84484; 85025; 85379; 85610; 87040; 87088; 88304; 93005; 93010; 97162; 97165; 99291; C9113; J0696; J1100; J1170; J1644; J1720; J1885; J1940; J2250; J2405; J2543; J2704; J2765; J3010; J3480; J7030; J7040; J7060; J7121; U0002

== ENCOUNTER 2021-08-07 16:30 | Emergency (ER) | payer OTHER ==
[~2021-08-07] VITALS: Ht 149.9 cm; Wt 69.9 kg
[~2021-08-07 16:30] MED LIST changes: +ADVIL100 MG PO; +AUGMENTIN 875-1 EACH PO; +BETAMETHASONE D15 G1 TOP; +CYANOCOBAL1000 MCG/M IM; +DOCUSATE SODIU100 MG PO; +DOXYCYCLINE HY100 MG PO; +DULCOLAX5 MG PO; +FLAGYL500 MG PO; +HYDROXYCHLOROQ200 MG PO; +IMODIUM A-D2 M2 PO; +KAOPECTATE262 MG PO; +MIRALAX17 GM PO; +PAIN RELIEF500 M1 PO; +PEPTO-BISMOL262 MG PO; +TYLENOL325 MG PO; +VITAMIN C1000 MG PO; +VITAMIN D250 MCG PO
--- NOTE | 2021-08-07 23:19 | EKG ---
[facility] [address] [facility] [place] [address] Signed Sinus tachycardia Left anterior fascicular block Moderate voltage criteria for LVH, may be normal variant ( R in aVL , Seanor product ) Nonspecific ST and T wave abnormality Abnormal ECG When compared with ECG of 20-NOV-2019 05:14, No significant change was found Confirmed by SUSHIL FLOWER MD ([id number]) on 08/07/2021 11:19:01 PM Electronically Signed By: SSUHIL FLOWER MD 08/07/21 2319 PATIENT NAME: HAYLEY MCKENZIE Electrocardiogram DATE OF : 36 PHYSICIAN: SUSHIL FLOWER MD REPORT #: [id number] REPORT IS CONFIDENTIAL AND NOT TO BE RELEASED WITHOUT AUTHORIZATION
== END 2021-08-07 19:00 | disposition home or self-care (01) ==
LOC: ED 16:30
DX: J20.5 Acute bronchitis due to respiratory syncytial virus (principal); Z20.822 Contact with and (suspected) exposure to COVID-19; I50.9 Heart failure, unspecified; Z79.82 Long term (current) use of aspirin; Z79.899 Other long term (current) drug therapy
CPT/HCPCS: 71045; 80053; 81001; 83605; 83880; 85025; 93005; 93010; 99285-25; C9803; U0003

== ENCOUNTER 2022-10-15 05:43 | Emergency (ER) | payer MEDICARE, OTHER ==
[~2022-10-15] VITALS: Ht 149.9 cm; Wt 65.8 kg
== END 2022-10-15 07:07 | disposition home or self-care (01) ==
LOC: ED 05:43
DX: J20.9 Acute bronchitis, unspecified (principal); I50.9 Heart failure, unspecified; Z79.899 Other long term (current) drug therapy; Z79.82 Long term (current) use of aspirin; Z95.2 Presence of prosthetic heart valve
CPT/HCPCS: 36415; 71045; 80053; 81001; 83880; 85025; 94664; 99283-25

== ENCOUNTER 2024-11-10 23:02 | Emergency (ER) | payer MEDICARE, OTHER ==
[~2024-11-10] VITALS: Ht 149.9 cm; Wt 70.0 kg
[2024-11-11] MEDS ORDERED: HYDROCODON-ACE1 EA10 PO (01:40)
[2024-11-11] MEDS ORDERED: VALACYCLOVIR1000 MG PO (01:40)
[2024-11-11] MEDS ORDERED: VALACYCLOVIR HCL 500 MG TAB PO ONE (01:45)
[2024-11-11] MEDS ORDERED: HYDROCODONE BIT/ACETAMINOPHEN 5/325 MG 1 TAB HOME.PACK PO PRN (01:45)
[2024-11-11 02:01] VITALS: BP 139/78
== END 2024-11-11 02:01 | disposition home or self-care (01) ==
LOC: ED 23:02
DX: B02.9 Zoster without complications (principal); I50.9 Heart failure, unspecified
CPT/HCPCS: 99282; A9270

== ENCOUNTER 2025-07-19 15:01 | Emergency (ER) | payer OTHER ==
[~2025-07-19] VITALS: Ht 149.9 cm; Wt 67.0 kg
[~2025-07-19 15:01] MED LIST changes: +HYDROCODON-ACE1 EA10 PO; +LASIX40 MG PO; +VALACYCLOVIR1000 MG PO
[2025-07-19 16:07] VITALS: BP 157/84
== END 2025-07-19 16:08 | disposition home or self-care (01) ==
LOC: ED 15:01
DX: S81.802A Unspecified open wound, left lower leg, initial encounter (principal); X58.XXXA Exposure to other specified factors, initial encounter; I50.9 Heart failure, unspecified; Z79.899 Other long term (current) drug therapy
CPT/HCPCS: 99283